=== PATIENT | male | born 1985 | race Caucasian/White ===

== ENCOUNTER → 2021-11-03 | Outpatient (CLI) | payer OTHER ==
[2021-11-03 13:09] LABS: HEMOGLOBIN 15.6 gm/dl (14.0-17.5); RED BLOOD COUNT 5.27 M/UL (4.20-5.50); WHITE BLOOD COUNT 4.3 K/UL (4.5-11.0)
[2021-11-03 13:47] LABS: BUN/CREATININE RATIO 11 (0-10)
[2021-11-04 07:10] LABS: COMPLEMENT C3, SERUM 136 mg/dL (82-167); COMPLEMENT C4, SERUM 23 mg/dL (12-38); RHEUMATOID ARTHRITIS FACTOR <10.0 IU/mL (<14.0)
[2021-11-04 09:14] LABS: HBSAG SCREEN Negative (Negative)
[2021-11-04 11:14] LABS: HCV AB <0.1 (0.0-0.9)
[2021-11-05 21:11] LABS: QUANTIFERON MITOGEN VALUE >10.00 IU/mL (.); QUANTIFERON-TB GOLD PLUS Negative (Negative)
== END ==
LOC: LAB 11:51
PROVIDERS: Nurse Practitioner Family
DX: Z11.59 Encounter for screening for other viral diseases (principal); M25.50 Pain in unspecified joint; D89.9 Disorder involving the immune mechanism, unspecified; R76.8 Other specified abnormal immunological findings in serum; Z79.899 Other long term (current) drug therapy; M79.643 Pain in unspecified hand; M10.9 Gout, unspecified
CPT/HCPCS: 71046; 73130; 73630; 80053; 82550; 82728; 83520; 84439; 84443; 84550; 85025; 85652; 86140; 86160; 86162; 86200; 86431; 86803; 87340